=== PATIENT | female | born 1985 | race African-American/Black ===

== ENCOUNTER → 2017-04-21 | Outpatient (CLI) | payer MEDICAID ==
[2017-04-22 11:01] LABS: HEMATOCRIT 42.6 % (36.0-47.0); HEMOGLOBIN 14.5 g/dL (12.0-15.5); MEAN CORPUSCULAR HEMOGLOBIN 30.1 pg (27.0-33.4); MEAN CORPUSCULAR HGB CONC 34.1 g/dL (32.0-36.0); MEAN CORPUSCULAR VOLUME 88 fl (80-97); PLATELET COUNT 189 10^3/uL (150-450); RED BLOOD COUNT 4.83 10^6/uL (3.72-5.28); RED CELL DISTRIBUTION WIDTH 13.6 % (11.5-14.0); WHITE BLOOD COUNT 5.4 10^3/uL (4.0-10.5)
[2017-04-22 11:21] LABS: ALANINE AMINOTRANSFERASE 24 U/L (9-52); ALBUMIN 3.5 g/dL (3.5-5.0); ALKALINE PHOSPHATASE 31 U/L (38-126); ANION GAP 7 (5-19); ASPARTATE AMINO TRANSFERASE 15 U/L (14-36); BILIRUBIN,DIRECT 0.2 mg/dL (0.0-0.4); BILIRUBIN,TOTAL 0.4 mg/dL (0.2-1.3); BLOOD UREA NITROGEN 11 mg/dL (7-20); CARBON DIOXIDE 26 mmol/L (22-30); CHLORIDE 108 mmol/L (98-107); CHOLESTEROL 134.03 mg/dL (0-200); GLUCOSE 85 mg/dL (75-110); POTASSIUM 4.6 mmol/L (3.6-5.0); SODIUM 140.6 mmol/L (137-145); TOTAL PROTEIN 5.9 g/dL (6.3-8.2); TRIGLYCERIDES 141 mg/dL (<150)
[2017-04-22 11:27] LABS: ABSOLUTE LYMPHOCYTES# (MANUAL) 3.7 10^3/uL (0.5-4.7); ABSOLUTE MONOCYTES # (MANUAL) 0.2 10^3/uL (0.1-1.4); ABSOLUTE NEUTROPHILS# (MANUAL) 1.3 10^3/uL (1.7-8.2); BASOPHILS % (MANUAL) 1 % (0-2); EOSINOPHILS % (MANUAL) 4 % (0-6); LYMPHOCYTES % (MANUAL) 59 % (13-45); MONOCYTES % (MANUAL) 3 % (3-13); PLATELET COMMENT ADEQUATE; RBC MORPHOLOGY COMMENT NORMO-CYTIC/CHROMIC; SEGMENTED NEUTROPHILS % (MAN) 24 % (42-78); TOTAL CELLS COUNTED 100
[2017-04-22 11:31] LABS: DIRECT LDL 73 mg/dL (<100)
== END ==
LOC: OD 13:04
PROVIDERS: ATTEND Family Medicine Geriatric Medicine
DX: E66.9 Obesity, unspecified (principal); Z79.899 Other long term (current) drug therapy
CPT/HCPCS: 36415; 80053; 80061; 84443; 85025

== ENCOUNTER 2018-08-09 19:35 | Emergency (ER) | payer SELFPAY ==
[2018-08-09 22:56] LABS: ABSOLUTE LYMPHOCYTES (AUTO) 1.2 10^3/uL (0.5-4.7); ABSOLUTE MONOCYTES (AUTO) 0.5 10^3/uL (0.1-1.4); ABSOLUTE NEUT (AUTO) 3.8 10^3/uL (1.7-8.2); BASOPHILS % (AUTO) 0.4 % (0-2); EOSINOPHILS % (AUTO) 0.7 % (0-6); HEMATOCRIT 38.7 % (36.0-47.0); HEMOGLOBIN 13.5 g/dL (12.0-15.5); LYMPHOCYTES % (AUTO) 21.6 % (13-45); MEAN CORPUSCULAR HEMOGLOBIN 31.2 pg (27.0-33.4); MEAN CORPUSCULAR HGB CONC 34.9 g/dL (32.0-36.0); MEAN CORPUSCULAR VOLUME 90 fl (80-97); MONOCYTES % (AUTO) 8.7 % (3-13); PLATELET COUNT 145 10^3/uL (150-450); RED BLOOD COUNT 4.32 10^6/uL (3.72-5.28); RED CELL DISTRIBUTION WIDTH 13.1 % (11.5-14.0); SEGMENTED NEUTROPHILS % (AUTO) 68.6 % (42-78); TOTAL CELLS COUNTED % (AUTO) 100 %; WHITE BLOOD COUNT 5.5 10^3/uL (4.0-10.5)
[2018-08-09 23:00] LABS: APPEARANCE,URINE SLIGHTLY-CLOUDY; BILIRUBIN,URINE NEGATIVE (NEGATIVE); COLOR,URINE YELLOW; GLUCOSE, URINE NEGATIVE (NEGATIVE); KETONES,URINE NEGATIVE (NEGATIVE); LEUKOCYTE ESTERASE,URINE NEGATIVE (NEGATIVE); NITRITE,URINE NEGATIVE (NEGATIVE); PROTEIN,URINE NEGATIVE (NEGATIVE); URINE SPECIFIC GRAVITY 1.027; UROBILINOGEN,URINE NEGATIVE mg/dL (<2.0)
[2018-08-09 23:15] LABS: ALANINE AMINOTRANSFERASE 24 U/L (9-52); ALBUMIN 3.5 g/dL (3.5-5.0); ALKALINE PHOSPHATASE 43 U/L (38-126); ANION GAP 9 (5-19); ASPARTATE AMINO TRANSFERASE 13 U/L (14-36); BILIRUBIN,DIRECT 0.1 mg/dL (0.0-0.4); BILIRUBIN,TOTAL 0.4 mg/dL (0.2-1.3); BLOOD UREA NITROGEN 10 mg/dL (7-20); CARBON DIOXIDE 25 mmol/L (22-30); CHLORIDE 104 mmol/L (98-107); GLUCOSE 118 mg/dL (75-110); LIPASE 25.2 U/L (23-300); POTASSIUM 4.2 mmol/L (3.6-5.0); SODIUM 137.7 mmol/L (137-145); TOTAL PROTEIN 6.1 g/dL (6.3-8.2)
[2018-08-10] MEDS ORDERED: OXYCODONE-ACETAMINOPHEN 5-325 MG TABLET PO ONE (00:30)
[2018-08-10] MEDS ORDERED: KETOROLAC TROMETHAMINE 60 MG/2 ML SDV IM ONE (00:32)
[2018-08-10] MEDS ORDERED: NORMAL SALINE 1000 ML 1,000 ML IV ONE (00:33)
--- NOTE | 2018-08-10 00:34 | ER Document Report ---
ED General - General Chief Complaint: Abdominal Pain Stated Complaint: ABDOMINAL PIAN Time Seen by Provider: 08/10/18 00:15 Mode of Arrival: Ambulatory Information source: Patient Notes: 33-year-old female presents with complaint of abdominal pain, and diarrhea that started yesterday. Patient describes the pain as generally located, sharp, constant. Patient has had associated diarrhea but denies any nausea or vomiting, headache, chest pain, shortness of breath, dysuria, hematuria, vaginal discharge. TRAVEL OUTSIDE OF THE [place] IN LAST 30 DAYS: No - HPI Onset: Yesterday Onset/Duration: Gradual, Persistent Quality of pain: Stabbing Severity: Mild Pain Level: 1 Associated symptoms: Diarrhea, Fever. denies: Chest pain, Nausea, Vomiting, Shortness of breath, Weakness Exacerbated by: Denies Relieved by: Denies Similar symptoms previously: Yes Recently seen / treated by doctor: No - Related Data Allergies/Adverse Reactions: No Known Allergies Allergy (Verified 04/26/15 01:25) Past Medical History - General Information source: Patient, [facility] Records - Social History Smoking Status: Current Every Day Smoker Cigarette use (# per day): Yes - 12 Chew tobacco use (# tins/day): No Smoking Education Provided: Yes - Smoking cessation counseling was provided for 4 minutes at the bedside Frequency of alcohol use: None Drug Abuse: None Lives with: Spouse/Significant other Family History: Reviewed & Not Pertinent Patient has suicidal ideation: No Patient has homicidal ideation: No - Medical History Medical History: Negative Renal/ Medical History: Denies: Hx Peritoneal Dialysis Past Surgical History: Reports: Hx Section - Immunizations Immunizations up to date: Yes Hx Diphtheria, Pertussis, Tetanus Vaccination: No Review of Systems - Review of Systems Notes: REVIEW OF SYSTEMS: CONSTITUTIONAL : Denies fever, chills, or sweats. Denies recent illness. Denies weight loss, recent hospitalizations. EENT: Denies visual changes, eye pain. Denies sore throat, oral lesions, difficulty swallowing. CARDIOVASCULAR: Denies chest pain. Denies palpitations. Denies lower extremity edema. RESPIRATORY: Denies cough. Denies shortness of breath, wheezing. GASTROINTESTINAL: + abdominal pain denies distention. Denies nausea, vomiting, + diarrhea. Denies blood in vomitus, stools, or per rectum. Denies black, tarry stools. Denies constipation. GENITOURINARY: Denies difficulty urinating, painful urination, frequency, blood in urine, or vaginal discharge. MUSCULOSKELETAL: Denies back or neck pain or stiffness. Denies joint pain or swelling. SKIN: Denies rash, lesions or sores. HEMATOLOGIC : Denies easy bruising or bleeding. LYMPHATIC: Denies swollen glands. NEUROLOGICAL: Denies confusion or altered mental status. Denies loss of consciousness. Denies dizziness or lightheadedness. Denies headache. Denies weakness or paralysis. Denies problems difficulty with ambulation, slurred speech. Denies sensory loss, numbness, or tingling. Denies seizures. PSYCHIATRIC: Denies anxiety or stress. Denies depression, suicidal ideation, or homicidal ideation. Denies visual or auditory hallucinations. Physical Exam - Vital signs Vitals: Temp Pulse Resp BP Pulse Ox 101.6 F H 107 H 20 139/60 H 95 08/09/18 20:11 08/09/18 20:11 08/09/18 20:11 08/09/18 20:11 08/09/18 20:11 - Notes Notes: PHYSICAL EXAMINATION: GENERAL: Well-appearing, well-nourished and in no acute distress. HEAD: Atraumatic, normocephalic. EYES: Pupils equal round and reactive to light, extraocular movements intact, conjunctiva are normal. ENT: Nares patent, oropharynx clear without exudates. Moist mucous membranes. NECK: Normal range of motion, supple without lymphadenopathy LUNGS: Breath sounds clear to auscultation bilaterally and equal. No wheezes r ales or rhonchi. HEART: Regular rate and rhythm without murmurs ABDOMEN: Soft, generalized tenderness with palpation nondistended abdomen. No guarding, no rebound. No masses appreciated. Female : Declined Musculoskeletal: Normal range of motion, no pitting or edema. No cyanosis. NEUROLOGICAL: Cranial nerves grossly intact. Normal speech, normal gait. Normal sensory, motor exams PSYCH: Normal mood, normal affect. SKIN: Warm, Dry, normal turgor, no rashes or lesions noted. Course - Re-evaluation Re-evalutation: 08/10/18 03:30 Laboratory 08/09/18 08/09/18 08/09/18 22:30 22:45 22:45 WBC 5.5 RBC 4.32 Hgb 13.5 Hct 38.7 MCV 90 MCH 31.2 MCHC 34.9 RDW 13.1 Plt Count 145 L Seg Neutrophils % 68.6 Lymphocytes % 21.6 Monocytes % 8.7 Eosinophils % 0.7 Basophils % 0.4 Absolute Neutrophils 3.8 Absolute Lymphocytes 1.2 Absolute Monocytes 0.5 Absolute Eosinophils 0.0 Absolute Basophils 0.0 Sodium 137.7 Potassium 4.2 Chloride 104 Carbon Dioxide 25 Anion Gap 9 BUN 10 Creatinine 0.83 Est GFR ( Amer) > 60 Est GFR (Non-Af Amer) > 60 Glucose 118 H Calcium 9.0 Total Bilirubin 0.4 Direct Bilirubin 0.1 Neonat Total Bilirubin Not Reportable Neonat Direct Bilirubin Not Reportable Neonat Indirect Bili Not Reportable AST 13 L ALT 24 Alkaline Phosphatase 43 Total Protein 6.1 L Albumin 3.5 Lipase 25.2 Urine Color YELLOW Urine Appearance SLIGHTLY-CLOUDY Urine pH 5.0 Ur Specific [place] 1.027 Urine Protein NEGATIVE Urine Glucose (UA) NEGATIVE Urine Ketones NEGATIVE Urine Blood NEGATIVE Urine Nitrite NEGATIVE Urine Bilirubin NEGATIVE Urine Urobilinogen NEGATIVE Ur Leukocyte Esterase NEGATIVE Urine WBC (Auto) 2 Urine RBC (Auto) 1 Squamous Epi Cells Auto 6 Urine Mucus (Auto) FEW Urine Ascorbic Acid 20 H Urine HCG, Qual NEGATIVE Abdomen/Pelvis CT 08/10/18 00:27 IMPRESSION: 1. No acute inflammatory or obstructive process identified. 2. Punctate nonobstructing right nephrolithiasis. This exam was performed according to our departmental dose-optimization program, which includes automated exposure control, adjustment of the mA and/or kV according to patient size and/or use of iterative reconstruction technique. Temp Pulse Resp BP Pulse Ox 101.6 F H 107 H 20 139/60 H 95 08/09/18 20:11 08/09/18 20:11 08/09/18 20:11 08/09/18 20:11 08/09/18 20:11 08/10/18 03:31 33-year-old female with no reported past medical history presents with complaint of generalized abdominal pain and diarrhea. Vital signs reviewed and patient is febrile but nontoxic in appearance. Upon my exam patient is sleeping peacefully. Upon awakening her abdominal exam is significant for generalized tenderness with palpation, no focal tenderness in the left lower quadrant, right lower quadrant, right upper quadrant. CBC is without leukocytosis or anemia. CMP is unremarkable. Urinalysis not consistent with urinary tract infection. CT of the abdomen and pelvis were negative for any acute process. Patient was reevaluated multiple times and every time is sleeping comfortably. She had no episodes of vomiting or diarrhea. Patient did receive Toradol, Zofran. Reports feeling better. Is tolerating fluids. Patient was evaluated and treated as appropriate for the patient's presenting symptoms and complaint, with consideration of any critical or life threatening conditions that may be associated with their obtained history and exam as noted above. All results were discussed with patient and her family member who is at the bedside. patient provided the opportunity to ask questions, and express concerns. Patient was educated on treatments based on their presumed diagnosis as noted above. At this time we will discharge the patient with return precautions and follow-up recommendations. Verbal discharge instructions given a the bedside. Medication warnings reviewed. Patient is in agreement with this plan and has verbalized understanding of return precautions. After careful consideration I feel that that patient can be safely discharged from the emergency department, they were advised to followup with a primary care physician in 2-3 days. Dictation on this chart was performed using voice recognition software and may result in unintended grammatical, spelling, syntax or errors. - Vital Signs Vital signs: Temp Pulse Resp BP Pulse Ox 101.6 F H 107 H 20 139/60 H 95 08/09/18 20:11 08/09/18 20:11 08/09/18 20:11 08/09/18 20:11 08/09/18 20:11 - Laboratory Result Diagrams: 08/09/18 22:45 08/09/18 22:45 Laboratory results interpreted by me: 08/09/18 08/09/18 08/09/18 22:30 22:45 22:45 Plt Count 145 L Glucose 118 H AST 13 L Total Protein 6.1 L Urine Ascorbic Acid 20 H - Diagnostic Test Radiology reviewed: Image reviewed, Reports reviewed Discharge - Discharge Clinical Impression: Nausea Fever Qualifiers: Fever type: unspecified Qualified Code(s): R50.9 - Fever, unspecified Abdominal pain Qualifiers: Abdominal location: unspecified location Qualified Code(s): R10.9 - Unspecified abdominal pain Condition: Good Disposition: HOME, SELF-CARE Instructions: Abdominal Pain ([facility]), Fever ([facility]), Nausea or Vomiting, Nonspecific ([facility]), Observation for Appendicitis ([facility]), Toradol Injection ([facility]) Prescriptions: Ketorolac Tromethamine [Toradol 10 mg Tablet] 10 mg PO Q6HP PRN #14 tablet PRN Reason: Metronidazole [Flagyl] 500 mg PO BID #14 tablet Ondansetron [Zofran Odt 4 mg Tablet] 1 - 2 tab PO Q4H PRN #15 tab.rapdis PRN Reason: For Nausea/Vomiting Forms: Elevated Blood Pressure, Smoking Cessation Education
[2018-08-10] MEDS ORDERED: KETOROLAC TROMETHAMINE INJ/PF 30 MG/1 ML SDV IV ONE (00:44)
[2018-08-10] MEDS ORDERED: ONDANSETRON HCL INJ/PF 4 MG/2 ML SDV IV ONE (00:45)
[2018-08-10] MEDS ORDERED: MORPHINE SULFATE 10 MG/ML INJ IV ONE (00:45)
--- NOTE | 2018-08-10 01:57 | RADIOLOGY REPORT (SQ) ---
EXAM DESCRIPTION: CT ABDOMEN PELVIS WITH IV CONTRAST COMPLETED DATE/TME: 08/10/2018 00:27 CLINICAL HISTORY: Lower abdominal pain. COMPARISON: None Available. TECHNIQUE: CT of the abdomen and pelvis performed following IV administration of 100 mL of Omnipaque 350. DLP: 2119.40 mGycm FINDINGS: Lung Bases: The visualized lung bases are clear. Bones: No destructive bone lesions identified. Abdomen: Liver: The liver has normal size and density. No intrahepatic mass or biliary dilatation. Gallbladder: No calcified gallstones. Spleen, Pancreas, and Adrenal Glands: The spleen, pancreas, and adrenal glands are unremarkable. Kidneys: The kidneys have normal size and contour without evidence of solid mass or hydronephrosis. Punctate nonobstructing right nephrolithiasis. Vasculature: The aorta and IVC have normal caliber and position. The portal vein is patent. The proximal visceral and renal arteries are patent. Stomach: The stomach and duodenum have normal course. Other: No free intraperitoneal air. Small fat-containing umbilical hernia. No free fluid or lymphadenopathy. Pelvis: Bladder: Urinary bladder is unremarkable. Bowel: No dilated loops of large or small bowel. Appendix: Normal appendix. Pelvis: Uterus is not enlarged. IMPRESSION: 1. No acute inflammatory or obstructive process identified. 2. Punctate nonobstructing right nephrolithiasis. This exam was performed according to our departmental dose-optimization program, which includes automated exposure control, adjustment of the mA and/or kV according to patient size and/or use of iterative reconstruction technique.
[2018-08-10 03:38] VITALS: BP 127/69
[2018-08-10 04:19] LABS: CHLAM PCR NOT DETECTED (NOT DETECT); GON PCR NOT DETECTED (NOT DETECT)
== END 2018-08-10 03:41 | disposition home or self-care (01) ==
LOC: ER 19:35
DX: R11.0 Nausea (principal); R50.9 Fever, unspecified; R10.9 Unspecified abdominal pain; R10.84 Generalized abdominal pain; R19.7 Diarrhea, unspecified; F17.210 Nicotine dependence, cigarettes, uncomplicated
CPT/HCPCS: 99406; 99284; 96361; 96374; 96375; 36415; 83690; 85025; 81025; 80053; 81001; 87491; 87591; 74177; J1885; J2270; J2405; J7030

== ENCOUNTER → 2019-01-12 | Outpatient (CLI) | payer MEDICAID ==
--- NOTE | 2019-01-12 12:34 | RADIOLOGY REPORT (SQ) ---
EXAM DESCRIPTION: SACRUM AND COCCYX COMPLETED DATE/TIME: 01/12/2019 12:16 pm REASON FOR STUDY: LOW BACK PAIN (M54.5) M54.5 LOW BACK PAIN COMPARISON: None. NUMBER OF VIEWS: Three views. TECHNIQUE: AP, lateral, and tilt views of the sacrum and coccyx. LIMITATIONS: None. FINDINGS: MINERALIZATION: Normal. BONES: No acute fracture or dislocation. No worrisome bone lesions. SOFT TISSUES: No soft tissue swelling. No foreign body. OTHER: No other significant finding. IMPRESSION: NEGATIVE STUDY OF THE SACRUM AND COCCYX. TECHNICAL DOCUMENTATION: JOB ID: [id number] [employer]- All Rights Reserved Reading location - IP/workstation name: [email or web address]
== END ==
LOC: RAD 11:28
PROVIDERS: ATTEND Family Medicine Geriatric Medicine
DX: M54.5 Low back pain (principal)
CPT/HCPCS: 72220

== ENCOUNTER → 2019-03-23 | Outpatient (CLI) | payer MEDICAID ==
--- NOTE | 2019-03-23 15:39 | RADIOLOGY REPORT (SQ) ---
EXAM DESCRIPTION: ANKLE RIGHT COMPLETE COMPLETED DATE/TIME: 03/23/2019 3:16 pm REASON FOR STUDY: PAIN IN RIGHT ANKLE AND JOINTS OF RIGHT FOOT M25.571 PAIN IN RIGHT ANKLE AND JOIN TS OF RIGHT FOOT COMPARISON: None. NUMBER OF VIEWS: Three views. TECHNIQUE: AP, lateral, and oblique radiographic images acquired of the right ankle. LIMITATIONS: None. FINDINGS: MINERALIZATION: Normal. BONES: No acute fracture or dislocation. No worrisome bone lesions. JOINTS: No effusions. SOFT TISSUES: Medial soft tissue swelling. OTHER: No other significant finding. IMPRESSION: Medial soft tissue swelling. No fracture. TECHNICAL DOCUMENTATION: JOB ID: [id number] [employer]- All Rights Reserved Reading location - IP/workstation name: [email or web address]
== END ==
LOC: RAD 14:56
PROVIDERS: ATTEND Nurse Practitioner Acute Care
DX: M25.571 Pain in right ankle and joints of right foot (principal)

== ENCOUNTER → 2019-05-14 | Outpatient (CLI) | payer MEDICAID ==
[2019-05-14 13:17] LABS: ANION GAP 6 (5-19); BLOOD UREA NITROGEN 9 mg/dL (7-20); CALCIUM 8.8 mg/dL (8.4-10.2); CARBON DIOXIDE 27 mmol/L (22-30); CHLORIDE 106 mmol/L (98-107); GLUCOSE 90 mg/dL (75-110); POTASSIUM 4.4 mmol/L (3.6-5.0); URIC ACID 5.3 mg/dL (2.5-6.2)
--- NOTE | 2019-05-14 13:34 | RADIOLOGY REPORT (SQ) ---
EXAM DESCRIPTION: ANKLE RIGHT COMPLETE COMPLETED DATE/TIME: 05/14/2019 12:47 pm REASON FOR STUDY: M25.579 PAIN IN UNSPECIFIED ANKLE AND JOINTS OF UNSPECIFIED FOOT M25.579 PAIN IN UNSPECIFIED ANKLE AND JOINTS OF UNSPECIFIED COMPARISON: [id number] NUMBER OF VIEWS: Three views. TECHNIQUE: AP, lateral, and oblique radiographic images acquired of the right ankle. LIMITATIONS: None. FINDINGS: MINERALIZATION: Normal. BONES: No acute fracture or dislocation. No worrisome bone lesions. JOINTS: No effusions. SOFT TISSUES: No soft tissue swelling. No foreign body. OTHER: No other significant finding. IMPRESSION: NEGATIVE STUDY OF THE RIGHT ANKLE. NO RADIOGRAPHIC EVIDENCE OF ACUTE INJURY. TECHNICAL DOCUMENTATION: JOB ID: [id number] [employer]- All Rights Reserved Reading location - IP/workstation name: [email or web address]
== END ==
LOC: RAD 12:17
PROVIDERS: ATTEND Family Medicine Geriatric Medicine
DX: M25.571 Pain in right ankle and joints of right foot (principal); N64.4 Mastodynia
CPT/HCPCS: 36415; 80048; 84550

== ENCOUNTER → 2019-05-14 | Outpatient (CLI) | payer MEDICAID | LOC: WI 11:35 | PROVIDERS: ATTEND Family Medicine Geriatric Medicine | DX: N64.4 Mastodynia (principal) | CPT/HCPCS: 77066 ==